=== PATIENT | female | born 2000 | race African-American/Black ===

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

== ENCOUNTER 2022-03-28 09:26 | Emergency (ER) | payer OTHER, MEDICAID ==
[2022-03-28] MEDS ORDERED: Ibuprofen 800 MG TAB ONE (10:28)
== END 2022-03-28 11:24 | disposition home or self-care (01) ==
LOC: ERS 09:26
DX: S50.12XA Contusion of left forearm, initial encounter (principal); I10 Essential (primary) hypertension; V49.9XXA Car occupant (driver) (passenger) injured in unspecified traffic accident, initial encounter

== ENCOUNTER 2022-08-17 09:56 | Emergency (ER) | payer OTHER ==
[2022-08-17 11:03] LABS: Pregnancy Test - Urine (BHCG) Negative (Negative); Pregu Control Background? CLEAR/WHITE (CLR/WHITE); Pregu Control Bar Appear? YES (CONTROL BAR); Specific Gravity 1.015 (1.002-1.036)
== END 2022-08-17 11:26 | disposition home or self-care (01) ==
LOC: ERS 09:56
DX: Z00.00 Encounter for general adult medical examination without abnormal findings (principal)
CPT/HCPCS: 81025; 99283

== ENCOUNTER 2022-10-28 00:15 | Emergency (ER) | payer OTHER ==
[2022-10-28] MEDS ORDERED: Ibuprofen 200 MG TAB ONE (00:40)
[2022-10-28] MEDS ORDERED: Acetaminophen 500 MG TAB ONE (00:41)
[2022-10-28] MEDS ORDERED: Boostrix 0.5 ML (Tdap) VIAL (>/=7 yrs of age) ONE (00:41)
[2022-10-28] MEDS ORDERED: Amoxicillin/Potassium Clav 875 MG TAB ONE (00:41)
== END 2022-10-28 01:52 | disposition home or self-care (01) ==
LOC: ERS 00:15
DX: S41.112A Laceration without foreign body of left upper arm, initial encounter (principal); S40.811A Abrasion of right upper arm, initial encounter; M79.644 Pain in right finger(s); I10 Essential (primary) hypertension; Z23 Encounter for immunization; Y04.0XXA Assault by unarmed brawl or fight, initial encounter
CPT/HCPCS: 90471; 90715

== ENCOUNTER 2022-12-14 09:44 | Emergency (ER) | payer OTHER ==
[2022-12-14] MEDS ORDERED: Ibuprofen 200 MG TAB ONE (11:48)
== END 2022-12-14 12:04 | disposition home or self-care (01) ==
LOC: ERS 09:44
DX: M79.632 Pain in left forearm (principal); I10 Essential (primary) hypertension

== ENCOUNTER 2023-04-13 11:05 | Emergency (ER) | payer OTHER, SELFPAY ==
[2023-04-13] MEDS ORDERED: Ondansetron ODT 4 MG TAB ONE (11:28)
== END 2023-04-13 11:45 | disposition home or self-care (01) ==
LOC: ERS 11:05
DX: B34.9 Viral infection, unspecified (principal); I10 Essential (primary) hypertension
CPT/HCPCS: 99283; Q0162